=== PATIENT | male | born 1995 | race Caucasian/White ===

== ENCOUNTER 2017-10-23 10:19 | Emergency (ER) | payer BC ==
[~2017-10-23] VITALS: Ht 170.2 cm; Wt 140.9 kg
[~2017-10-23 10:19] MED LIST: NORCO 325 MG-51 TAB PO
[2017-10-23 10:25] VITALS: BP 168/99; TEMP 96.9
[2017-10-23] MEDS ORDERED: FLEXERIL 1010 MG/TAB PO (10:55)
[2017-10-23 11:20] VITALS: PULSE 70
== END 2017-10-23 11:20 | disposition home or self-care (01) ==
LOC: COL.ER 10:19
DX: M62.830 Muscle spasm of back (principal); J45.909 Unspecified asthma, uncomplicated; X50.0XXA Overexertion from strenuous movement or load, initial encounter

== ENCOUNTER 2018-02-11 20:12 | Emergency (ER) | payer BC ==
[~2018-02-11] VITALS: Ht 170.2 cm; Wt 118.2 kg
[~2018-02-11 20:12] MED LIST changes: +FLEXERIL 1010 MG/TAB PO
[2018-02-11 20:13] VITALS: BP 146/92; PULSE 109; TEMP 98.2
== END 2018-02-11 21:22 | disposition left against medical advice (07) ==
LOC: COL.ER 20:12
DX: H57.8 Other specified disorders of eye and adnexa (principal)

== ENCOUNTER 2018-08-29 17:58 | Emergency (ER) | payer BC ==
[~2018-08-29] VITALS: Ht 172.7 cm; Wt 130.9 kg
[2018-08-29 18:03] VITALS: BP 139/89; TEMP 97.9
[2018-08-29] MEDS ORDERED: ALBUTEROL0.83 MG/ML IH (18:13)
[2018-08-29] MEDS ORDERED: ZITHROMAX 250M250 MG PO (18:33)
[2018-08-29] MEDS ORDERED: PREDNISONE20 MG PO (18:33)
[2018-08-29] MEDS ORDERED: VENTOLIN0.09 MG IH (18:51)
[2018-08-29 19:05] VITALS: PULSE 86
== END 2018-08-29 19:05 | disposition home or self-care (01) ==
LOC: COL.ER 17:58
DX: J20.9 Acute bronchitis, unspecified (principal); J45.901 Unspecified asthma with (acute) exacerbation; F17.210 Nicotine dependence, cigarettes, uncomplicated
CPT/HCPCS: J7512

== ENCOUNTER 2019-07-26 09:49 | Emergency (ER) | payer BC ==
[~2019-07-26] VITALS: Ht 170.2 cm; Wt 138.2 kg
[~2019-07-26 09:49] MED LIST changes: +ALBUTEROL0.83 MG/ML IH; +PREDNISONE20 MG PO; +VENTOLIN0.09 MG IH; +ZITHROMAX 250M250 MG PO
[2019-07-26 09:52] VITALS: TEMP 96.2
[2019-07-26 13:19] VITALS: BP 160/98; PULSE 66
== END 2019-07-26 13:20 | disposition home or self-care (01) ==
LOC: COL.ER 09:49
DX: J45.909 Unspecified asthma, uncomplicated (principal); Z98.890 Other specified postprocedural states
CPT/HCPCS: J1885